=== PATIENT | female | born 1990 | race Asian ===

== ENCOUNTER 2017-06-02 19:27 | Emergency (ER) | payer OTHER ==
[2017-06-02 19:44] VITALS: BP 109/68
--- NOTE | 2017-06-02 19:49 | UC ---
Rectal Pain HPI - History Of Current Complaint Chief Complaint: UCAbdominalPain Stated Complaint: BLOOD STOOL Hx Last Menstrual Period: 05/19/17 - Allergies/Home Medications Allergies/Adverse Reactions: Allergies Allergy/AdvReac Type Severity Reaction Status Date / Time No Known Allergies Allergy Verified 06/02/17 19:44 Home Medications: Home Medications Aripiprazole Maintena (NF) [Abilify Maintena] 300 mg IM Q28D 06/02/17 [History Confirmed 06/02/17] Multiple Vitamin [Multivitamins] 1 tab PO DAILY 06/02/17 [History Confirmed ] PMH/Surg Hx/FS Hx/Imm Hx - Surgical History Surgical History: Yes Surgery Procedure, Year, and Place: WISDOM TEETH - Social History Alcohol Use: Rare Substance Use Type: None Smoking Status (MU): Never Smoked Tobacco - Immunization History Most Recent Influenza Vaccination: none Physical Exam Vital Signs: Initial Vital Signs Temp 99.7 F 06/02/17 19:39 Pulse 83 06/02/17 19:39 Resp 16 06/02/17 19:39 BP 109/68 06/02/17 19:39 Pulse Ox 99 06/02/17 19:39 Discharge - Discharge Plan Referrals: [facility]GL[facility] [Primary Care Provider] -
--- NOTE | 2017-06-02 20:19 | UC ---
GI Bleed HPI - HPI Summary HPI Summary: Pt presents with . Pt states x 3-4 days has had BRBPR with BM only. STates has been getting less and less. no clots. States appears as a streak on side of stool. Pt denies abdominal pain. No n/v. no vaginal discharge, odor, itching. No f.b or trauma to rectum. no h/o hemorrhoids No anticoagulants. no pain. No lightheadedness. Stool mod firm - not constipation. mild straining. No dripping blood. Pt's medications reviewed this visit. - History Of Current Complaint Chief Complaint: UCAbdominalPain Stated Complaint: BLOOD STOOL Time Seen by Provider: 06/02/17 19:51 Hx Obtained From: Patient Hx Last Menstrual Period: 05/19/17 ?: No - LMP 05/13 Severity: Blood-Streaked Stool Severity Initially: Mild Severity Currently: None Pain Intensity: 0 Pain Scale Used: 0-10 Numeric Associated Pain: None Aggravating Factor(s): Bowel Movement - Allergies/Home medications Allergies/Adverse Reactions: Allergies Allergy/AdvReac Type Severity Reaction Status Date / Time No Known Allergies Allergy Verified 06/02/17 19:44 Home Medications: Home Medications Aripiprazole Maintena (NF) [Abilify Maintena] 300 mg IM Q28D 06/02/17 [History Confirmed 06/02/17] Multiple Vitamin [Multivitamins] 1 tab PO DAILY 06/02/17 [History Confirmed ] PMH/Surg Hx/FS Hx/Imm Hx Previously Healthy: Yes - Surgical History Surgical History: Yes Surgery Procedure, Year, and Place: WISDOM TEETH - Family History Known Family History: Positive: None - Social History Occupation: Student Lives: With Family Alcohol Use: Rare Substance Use Type: None Smoking Status (MU): Never Smoked Tobacco - Immunization History Most Recent Influenza Vaccination: none Review of Systems Constitutional: Negative Skin: Negative Gastrointestinal: Other - BRBPR All Other Systems Reviewed And Are Negative: Yes Physical Exam Triage Information Reviewed: Yes Appearance: Well-Appearing, No Pain Distress, Well-Nourished Vital Signs: Initial Vital Signs Temp 99.7 F 06/02/17 19:39 Pulse 83 06/02/17 19:39 Resp 16 06/02/17 19:39 BP 109/68 06/02/17 19:39 Pulse Ox 99 06/02/17 19:39 Vital Signs Reviewed: Yes Eye Exam: Normal Eyes: Positive: Conjunctiva Clear ENT Exam: Normal ENT: Positive: Normal ENT inspection, Hearing grossly normal, TMs normal Dental Exam: Normal Neck exam: Normal Neck: Positive: Supple, Nontender, No Lymphadenopathy Respiratory Exam: Normal Respiratory: Positive: Chest non-tender, Lungs clear, Normal breath sounds, No respiratory distress, No accessory muscle use Cardiovascular Exam: Normal Cardiovascular: Positive: RRR, No Murmur Abdominal Exam: Normal Abdomen Description: Positive: Nontender, No Organomegaly, Soft, Other: - no external lesions No palpable hemorrhoid None tender stool brown minimially weakly guiaic positive at periphery of sample RN chaparone in room Pt requested stay in room for exam Bowel Sounds: Positive: Present Musculoskeletal Exam: Normal Neurological Exam: Normal Psychological Exam: Normal Skin Exam: Normal Bleed Course/Dx - Course Course Of Treatment: Pt reports BRBPR which has been improving x 3 days. VSS. abd soft. nonconcerning exam. d/.w pt and and pt at length - no clear identifiable cause of bleeding. recommend hydrate. stool softners. return precautions. GI referral. will check BUN and CBC for completeness. understanding and agreement - Differential Dx/Diagnosis Provider Diagnoses: BRBPR Discharge - Discharge Plan Condition: Stable Disposition: HOME Patient Education Materials: Rectal Bleeding (ED) Referrals: Jon Reeves MD [Medical Doctor] - [facility] [Primary Care Provider] - Additional Instructions: The doctor that evaluated you today did not find anything concerning on your exam. The doctor thinks it is okay for your to go home. IF you developed increased bleeding, abdominal pain, lightheadedness, vomiting or ANY Other symptoms it is recommended you go to the emergency department for further evaluation and treatment. 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
[2017-06-03 13:48] LABS: Hematocrit 41 % (35-47); Hemoglobin 13.7 g/dl (12.0-16.0); Mean Corpuscular HGB Conc 34 g/dl (31-36); Mean Corpuscular Hemoglobin 31 pg (27-31); Mean Corpuscular Volume 92 fL (80-97); Mean Platelet Volume 9 um3 (7.4-10.4); Red Blood Count 4.42 10^6/ul (4.0-5.4); Red Cell Distribution Width 12 % (10.5-15); White Blood Count 6.8 10^3/ul (3.5-10.8)
[2017-06-03 14:00] LABS: BUN/Creatinine Ratio 22.9 (8-20); Calcium 9.4 mg/dL (8.6-10.3); EGFR African American 105.3 (>60); EGFR Non-African American 81.9 (>60)
== END 2017-06-02 20:24 | disposition home or self-care (01) ==
LOC: UCEAST 19:27
DX: K62.5 Hemorrhage of anus and rectum (principal)
CPT/HCPCS: 36415; 80048; 85025; 99211; G0463

== ENCOUNTER 2018-02-03 00:12 | Emergency (ER) | payer OTHER ==
[2018-02-03] MEDS ORDERED: NS 0.9% 1000 ML* 1,000 ML IV ONE (01:03)
--- NOTE | 2018-02-03 01:19 | ED ---
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 She states she felt some ringing in her ears felt very fatigued and felt like she was almost ready to pass out. She endorses "low blood sugar feelings." She states she has had this in the past. However, over the past 3 days she has been bleeding heavily, soaking through 3-4 pads per day during her period and thinks this may be the cause of her near syncopal episode. Denies any history of anemia. Denies any nausea, vomiting, visual changes, chest pain, shortness of breath, abdominal pain. She states she is feeling well now on arrival into the ED. - History Of Current Complaint Chief Complaint: EDVaginalBleeding Time Seen by Provider: 02/03/18 01:03 Hx Obtained From: Patient Onset/Duration: Sudden Onset Timing: Constant Activity At Onset: At Rest Associated Head Trauma: No Aggravating Factor(s): Nothing Alleviating Factor(s): Spontaneous Resolution - Risk Factors Cardiac Risk Factors: Negative Dysrhythmia Risk Factors: Negative Risk Factor(s): Negative - Allergies/Home Medications Allergies/Adverse Reactions: Allergies Allergy/AdvReac Type Severity Reaction Status Date / Time No Known Allergies Allergy Verified 02/03/18 00:15 PMH/Surg Hx/FS Hx/Imm Hx Previously Healthy: Yes Endocrine/Hematology History: Denies: Hx Diabetes Cardiovascular History: Denies: Hx Hypertension, Hx Pacemaker/ICD History: Denies: Hx Renal Disease Musculoskeletal History: Denies: Hx Osteoporosis Sensory History: Denies: Hx Hearing Aid Psychiatric History: Reports: Hx of Violent Episodes Against Others Denies: Hx Eating Disorder, Hx Panic Disorder - Surgical History Surgery Procedure, Year, and Place: WISDOM TEETH - Immunization History Hx Pertussis Vaccination: No Immunizations Up to Date: Unable to Obtain/Confirm Infectious Disease History: No Infectious Disease History: Denies: Traveled Outside the [place] in Last 30 Days - Family History Known Family History: Positive: None - Social History Occupation: Unemployed Lives: With Family Alcohol Use: Rare Hx Substance Use: No Substance Use Type: Reports: None Hx Tobacco Use: No Smoking Status (MU): Never Smoked Tobacco Review of Systems Constitutional: Negative Negative: Fever, Chills, Fatigue, Skin Diaphoresis Negative: Palpitations, Chest Pain Negative: Abdominal Pain, Vomiting, Diarrhea, Nausea Genitourinary: Negative Positive: no symptoms reported, see HPI, other - vaginal bleeding Negative: Arthralgia, Myalgia Skin: Negative Positive: Syncope - near syncope All Other Systems Reviewed And Are Negative: Yes Physical Exam Triage Information Reviewed: Yes Vital Signs On Initial Exam: Initial Vitals Temp Pulse Resp BP Pulse Ox 97.7 F 71 16 107/75 100 02/03/18 00:15 02/03/18 00:15 02/03/18 00:15 02/03/18 00:15 02/03/18 00:15 Vital Signs Reviewed: Yes Appearance: Positive: Well-Appearing, Well-Nourished Skin: Positive: Warm, Skin Color Reflects Adequate Perfusion Head/Face: Positive: Normal Head/Face Inspection Eyes: Positive: EOMI, DELANEY, Conjunctiva Clear Neck: Positive: Supple, No Lymphadenopathy Respiratory/Lung Sounds: Positive: Clear to Auscultation, Breath Sounds Present Cardiovascular: Positive: RRR, Pulses are Symmetrical in both Upper and Lower Extremities, S1, S2 Abdomen Description: Positive: Soft Bowel Sounds: Positive: Present Musculoskeletal: Positive: Normal, Strength/ROM Intact Neurological: Positive: Sensory/Motor Intact Psychiatric: Positive: Other - patient extremely stoic AVPU Assessment: Alert Diagnostics - Vital Signs Vital Signs Temp Pulse Resp BP Pulse Ox 02/03/18 00:15 97.7 F 71 16 107/75 100 - Laboratory Result Diagrams: 02/03/18 01:19 02/03/18 01:19 Lab Statement: Any lab studies that have been ordered have been reviewed, and results considered in the medical decision making process. Course/Dx Course Of Treatment: Labs obtained. Left all WNL except for slightly elevated BUN. However patient appears dehydrated. She is refusing fluids, however is acceptable to labs. She is encouraged to follow up with MEDICAL MANAGEMENT SPECIALIST regarding her symptoms. Likely a near syncopal episode secondary to dehydration. - Diagnoses Differential Diagnosis/HQI/PQRI: Positive: Hypoglycemia, Hypovolemia, Vasovagal Episode Provider Diagnoses: Vaginal bleeding Discharge - Sign-Out/Discharge Documenting (check all that apply): Patient Departure - Discharge Plan Condition: Stable Disposition: HOME Patient Education Materials: Dysfunctional Uterine Bleeding (ED), Near Syncope (ED) Referrals: No Primary Care Phys,NOPCP [Primary Care Provider] - Additional Instructions: Drink plenty of fluids rest Please follow up with your OBGYN if symptoms of vaginal bleeding persist or worsen - Billing Disposition and Condition Condition: STABLE Disposition: Home
[2018-02-03 01:28] LABS: ABS Basophils 0 10^3/ul (0-0.2); ABS Eosinophils 0.1 10^3/ul (0-0.6); ABS Lymphocytes 2.1 10^3/ul (1.0-4.8); ABS Monocytes 0.3 10^3/ul (0-0.8); ABS Neutrophils 5.1 10^3/ul (1.5-7.7); ABS Nucleated RBC 0 10^3/ul; Hematocrit 36 % (35-47); Hemoglobin 12.1 g/dl (12.0-16.0); Lymphocyte % 27.7 % (25-47); Mean Corpuscular HGB Conc 34 g/dl (31-36); Mean Corpuscular Hemoglobin 31 pg (27-31); Mean Corpuscular Volume 93 fL (80-97); Mean Platelet Volume 9.3 um3 (7.4-10.4); Nucleated Red Blood Cells % 0; Platelet Count 152 10^3/ul (150-450); Red Blood Count 3.88 10^6/ul (4.00-5.40); Red Cell Distribution Width 13 % (10.5-15); White Blood Count 7.6 10^3/ul (3.5-10.8)
[2018-02-03 01:38] LABS: INR 0.9 (0.77-1.02)
[2018-02-03 01:44] LABS: EGFR Non-African American 77.5 (>60)
[2018-02-03 01:51] VITALS: BP 108/76
== END 2018-02-03 01:51 | disposition home or self-care (01) ==
LOC: ED 00:12
DX: N93.9 Abnormal uterine and vaginal bleeding, unspecified (principal); R55 Syncope and collapse
CPT/HCPCS: 36415; 80053; 83605; 84702; 85025; 85610; 85730; 99283